=== PATIENT | female | born 1995 | race Caucasian/White ===

== ENCOUNTER 2023-05-28 15:16 | Outpatient (CLI) | payer BC, SELFPAY ==
--- NOTE | ~2023-05-28 | US_ITS ---
EXAMINATION: US transvaginal DATE: 05/28/2023 15:45 INDICATION: Abnormal uterine bleeding. Pelvic pain. Comparison:No prior studies for comparison. TECHNIQUE: Multiple transabdominal and endovaginal sonographic images of the pelvis performed. FINDINGS: The uterus measures 7.6 x 2.6 x 4 cm. The endometrial complex measures 3 mm. The right ovary measures 2.2 x 1.5 x 1.5 cm and the left ovary measures 3.2 x 1.2 x 2.1 cm. There ar e small follicles in each ovary. Normal doppler signal in both ovaries. There is no free fluid in the pelvis. There are no abnormal masses seen on either side. IMPRESSION: 1. Unremarkable pelvic ultrasound. Reviewed, dictated and finalized at location L.
== END 2023-05-28 15:17 ==
LOC: MICIMG 15:18
PROVIDERS: PCP Advanced Practice Midwife; Visit Provider Advanced Practice Midwife
DX: R10.2 Pelvic and perineal pain (principal); N93.8 Other specified abnormal uterine and vaginal bleeding
CPT/HCPCS: 76830

== ENCOUNTER 2024-12-22 16:16 | Outpatient (CLI) | payer BC, SELFPAY ==
[2024-12-22 16:54] LABS: Basophils Percent Auto 0.3 % (0.2-1.2); Eosinophils Absolute Auto 0.1 K/mm3 (0-0.3); Eosinophils Percent Auto 0.7 % (0-4.4); Hematocrit 40.2 % (37.0-47.0); Hemoglobin 12.6 g/dL (12.0-15.0); Immature Granulocyte Absolute 0.02 K/mm3 (0.00-0.031); Immature Granulocyte Percent A 0.2 % (0-0.5); Lymphocytes Absolute Auto 1.64 K/mm3 (0.9-3.2); Lymphocytes Percent Auto 18.3 % (18.3-44.2); Mean Corpuscular HGB Conc 31.3 g/dl (32-36); Mean Corpuscular Hemoglobin 28.1 pg (26-34); Mean Corpuscular Volume 89.7 fl (80-100); Mean Platelet Volume 10.3 fl (7.4-10.4); Monocytes Absolute Auto 0.8 K/mm3 (0.1-0.6); Monocytes Percent Auto 8.5 % (2.6-8.5); Neutrophils Absolute Auto 6.5 K/mm3 (1.3-6.7); Platelet Count Result 319 k/mm3 (150-375); Red Blood Count 4.48 M/mm3 (4.2-5.4); Red Cell Distribution Width 13.8 % (11.5-14.5)
--- OUTSIDE RECORDS SUMMARY | 2024-12-22 18:06 | XMS_ITS | Clinical Summary ---
Author Organization [facility] Address [address] [place] [id number] Care Team Providers Care Braille Proofreader Name Role Phone ApolinrachidiKeliLizett RUSSELL Primary Care Provider + Allergies Active Allergy Reactions Criticality Noted Date Comments Morphine Nausea & Vomiting Medium 08/21/2016 Medications medroxyPROGESTERon e 150 mg/mL injection 08/06/2019 Active Active Problems Problem Noted Date Diagnosed Date Nephrolithiasis 10/22/2019 Surgical History Surgery Date Site/Laterality Comments OTHER SURGICAL HISTORY jaw reconstruction Medical History Medical History Date Comments Kidney stone Anxiety Family History Medical History Relation Name Comments Kidney disease Mother Relation Name Status Comments Mother Social History Tobacco Use Types Packs/Day Years Used Date Smoking Tobacco: Never Smokeless Tobacco: Never Alcohol Use Standard Drinks/Week Comments Yes 0 (1 standard drink = 0.6 oz pur e alcohol) Personal Safety Answer Date Recorded Getting School Help Needed Not on file 11/16 Comments Unknown Sex and Gender Information Value Date Recorded Sex Assigned at Not on file Legal Sex Female 10:41 AM FINAL APPLICATION REVIEWER Gender Identity Not on file Sexual Orientation Not on file Occupation Industry Job Start Date Job End Date Hired Help Not on file Not on file Not on file Obstetrics History Last Filed Vital Signs Vital Sign Reading Time Taken Comments Blood Pressure 132/79 10/22/2019 4:03 PM FINAL APPLICATION REVIEWER Pulse 86 10/22/2019 4:03 PM FINAL APPLICATION REVIEWER Temperature 37.3 C (99.1 F) 10/22/2019 4:03 PM FINAL APPLICATION REVIEWER Respiratory Rate - - Oxygen Saturation - - Inhaled Oxygen Concentration - - Weight 81.6 kg (180 lb) 10/22/2019 4:03 PM FINAL APPLICATION REVIEWER Height 167.6 cm (5' 6 ) 10/22/2019 4:03 PM FINAL APPLICATION REVIEWER Body Mass Index 29.05 10/22/2019 4:03 PM FINAL APPLICATION REVIEWER Plan of Treatment Not on file Insurance [facility] Care Teams Braille Proofreader Relationship Specialty Start Date End Date Keli Luna DO [address] [place] [id number] PCP - General Family Medicine 10/19/19
--- OUTSIDE RECORDS SUMMARY | 2024-12-22 18:06 | XMS_ITS | Referral Summary ---
Author Organization [facility] Address [address] [place] [phone] Care Team Providers Care Tie Worker Name Role Phone CherylKeli Yvette RUSSELL Primary Care Provider + Allergies Active Allergy Reactions Criticality Noted Date Comments Morphine Nausea & Vomiting Medium 08/21/2016 Medications medroxyPROGESTERon e 150 mg/mL injection 08/06/2019 Active Active Problems Problem Noted Date Diagnosed Date Nephrolithiasis 10/22/2019 Social History Tobacco Use Types Packs/Day Years [...] on file Legal Sex Female 10:41 AM AUTISM SPECIALIST Gender Identity Not on file Sexual Orientation Not on file 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 file Not on file Not on file Last Filed Vital Signs Vital Sign Reading Time Taken Comments Blood Pressure 132/79 10/22/2019 4:03 PM AUTISM SPECIALIST Pulse 86 10/22/2019 4:03 PM AUTISM SPECIALIST Temperature 37.3 C (99.1 F) 10/22/2019 4:03 PM AUTISM SPECIALIST Respiratory Rate - - Oxygen Saturation - - Inhaled Oxygen Concentration - - Weight 81.6 kg (180 lb) 10/22/2019 4:03 PM AUTISM SPECIALIST Height 167.6 cm (5' 6 ) 10/22/2019 4:03 PM AUTISM SPECIALIST Body Mass Index 29.05 10/22/2019 4:03 PM AUTISM SPECIALIST Plan of Treatment Not on file Insurance [facility] Care Teams Tie Worker Relationship Specialty Start Date End Date Keli Luna DO [address] [place] [id number] PCP - General Family Medicine 10/19/19
--- OUTSIDE RECORDS SUMMARY | 2024-12-22 18:06 | XMS_ITS | Clinical Summary ---
Author Organization [facility] Address [address] [place] [address] Care Team Providers Care Tax Record Clerk Name Role Phone Carolee Thomas Primary Care Provider [phone] Allergies Active Allergy Reactions Criticality Noted Date Comments Bee Venom Unknown 04/22/2014 Morphine Nausea and Vomiting Medium 08/21/2016 Sulfacetamide Unknown 04/22/2014 Medications hydrocodone-acetam inophen 5-325 MG tabletIndications: Acute Pain < 7 Day Supply,kidney stone Take 1 tablet by mouth every 6 (six) hours as needed for Pain (severe pain). Indications: Acute Pain < 7 Day Supply, kidney stone Do not exceed 4g of acetaminophen in a day. 15 tablet 10/16/19 20 Active tamsulosin (FLOMAX) 0.4 MG Cap Take 1 capsule (0.4 mg total) by mouth daily. 10 capsule 10/16/19 20 Active ondansetron 4 MG disintegrating tablet Take 1 tablet (4 mg total) by mouth every 8 (eight) hours as needed for Nausea. 10 tablet 10/16/19 20 Active Social History Tobacco Use Types Packs/Day Years Used Date Smoking Tobacco: Never Smokeless Tobacco: Never Alcohol Use Standard Drinks/Week Comments Yes 0 (1 standard drink = 0.6 oz pur e alcohol) socially Comments No Sex and Gender Information Value Date Recorded Sex Assigned at Not on file Legal Sex Female 9:22 PM CDT Gender Identity Not on file Sexual Orientation Not on file Last Filed Vital Signs Vital Sign Reading Time Taken Comments Blood Pressure 136/89 07/14/2022 8:53 PM STOCKROOM ASSOCIATE Pulse 88 07/14/2022 8:53 PM STOCKROOM ASSOCIATE Temperature 36.9 C (98.5 F) 07/14/2022 8:53 PM STOCKROOM ASSOCIATE Respiratory Rate 18 07/14/2022 8:53 PM STOCKROOM ASSOCIATE Oxygen Saturation 100% 07/14/2022 8:53 PM STOCKROOM ASSOCIATE Inhaled Oxygen Concentration - - Weight 59 kg (130 lb) 07/14/2022 8:53 PM STOCKROOM ASSOCIATE Height 167.6 cm (5' 6 ) 07/14/2022 8:53 PM STOCKROOM ASSOCIATE Body Mass Index 20.98 07/14/2022 8:53 PM STOCKROOM ASSOCIATE Plan of Treatment Health Maintenance Due Date Last Done Comments Cervical Cancer Screening Pa p Smear (Age 21 to 29) Every 3 Years 1996 Cervical Cancer Screening 1996 Annual Physical 1999 Hepatitis C 2014 DTaP, Tdap and Td Vaccines ( 1 - Tdap) 2015 Hepatitis B Vaccines (1 of 3 - 19+ 3-dose series) 2015 COVID-19 Vaccine (3 - 2023-2 5 season) 2024 12/19/2020, 11/28/2020 HPV Vaccines Aged Out No longer eligi ble based on patient's age to complete this topic Meningococcal B Vaccine Aged Out No l onger eligible based on patient's age to complete this topic Meningococcal Vaccine Aged Out No ellen clotilde eligible based on patient's age to complete this topic Pneumococcal Vaccine: Pediatrics (0 to 5 Years) and At-Risk Patients (6 to 49 Years) Aged Out No longer eligible b ased on patient's age to complete this topic RSV Immunizations Under 20 Months Aged Out No longer eligible b ased on patient's age to complete this topic Insurance [facility] Care Teams Tax Record Clerk Relationship Specialty Start Date End Date Carolee Thomas PA [address] [place] [id number] PCP - General PHYSICIAN MANAGER CUSTOM 07/14/22
== END 2024-12-22 16:17 | disposition home or self-care (01) ==
LOC: ANHLAB 16:19
PROVIDERS: PCP Advanced Practice Midwife; Visit Provider Obstetrics & Gynecology
DX: O20.0 Threatened abortion (principal); Z3A.00 Weeks of gestation of pregnancy not specified
CPT/HCPCS: 36415; 84702; 85025; 86900; 86901

== ENCOUNTER 2024-12-24 15:13 | Outpatient (CLI) | payer BC, SELFPAY ==
--- OUTSIDE RECORDS SUMMARY | 2024-12-24 16:28 | XMS_ITS | Clinical Summary ---
Author Organization [facility] Address [address] [place] [address] Care Team Providers Care Leaf Stripper Name Role Phone Carolee Thomas Primary Care Provider [phone] Allergies Active Allergy Reactions Criticality Noted Date [...] Comments Blood Pressure 136/89 07/14/2022 8:53 PM PLATE ROLLER Pulse 88 07/14/2022 8:53 PM PLATE ROLLER Temperature 36.9 C (98.5 F) 07/14/2022 8:53 PM PLATE ROLLER Respiratory Rate 18 07/14/2022 8:53 PM PLATE ROLLER Oxygen Saturation 100% 07/14/2022 8:53 PM PLATE ROLLER Inhaled Oxygen Concentration - - Weight 59 kg (130 lb) 07/14/2022 8:53 PM PLATE ROLLER Height 167.6 cm (5' 6 ) 07/14/2022 8:53 PM PLATE ROLLER Body Mass Index 20.98 07/14/2022 8:53 PM PLATE ROLLER Plan of Treatment Health Maintenance Due Date [...] patient's age to complete this topic Insurance [facility] Care Teams Leaf Stripper Relationship Specialty Start Date End Date Carolee Thomas PA [address] [place] [id number] PCP - General PHYSICIAN DECKHAND CLAM DREDGE 07/14/22
--- OUTSIDE RECORDS SUMMARY | 2024-12-24 16:28 | XMS_ITS | Referral Summary ---
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 Not on file Not on file Last Filed Vital Signs Vital Sign Reading Time Taken Comments Blood Pressure 132/79 10/22/2019 4:[address] JUDGE Pulse 86 10/22/2019 4:[address] JUDGE Temperature 37.3 C (99.1 F) 10/22/2019 4:[address] JUDGE Respiratory Rate - - Oxygen Saturation - - Inhaled Oxygen Concentration - - Weight 81.6 kg (180 lb) 10/22/2019 4:[address] JUDGE Height 167.6 cm (5' 6 ) 10/22/2019 4:[address] JUDGE Body Mass Index 29.05 10/22/2019 4:[address] JUDGE Plan of Treatment Not on file Insurance [facility] Care Teams Money Manager Relationship Specialty Start Date End Date Keli Luna DO [address] [place] [id number] PCP - General Family Medicine 10/19/19
--- OUTSIDE RECORDS SUMMARY | 2024-12-24 16:28 | XMS_ITS | Clinical Summary ---
Author Organization [facility] Address [address] [place] [phone] Care Team Providers Care Materials Planner Name Role Phone ApolinarchidiKeliLizett RUSSELL Primary Care Provider + Allergies Active [...] on file Legal Sex Female 10:41 AM TRIGONOMETRY TEACHER Gender Identity Not on file Sexual Orientation Not on file Occupation Industry Job Start Date Job End Date [employer] Not on file Not on file Not on file Obstetrics History Last Filed Vital Signs Vital Sign Reading Time Taken Comments Blood Pressure 132/79 10/22/2019 4:03 PM TRIGONOMETRY TEACHER Pulse 86 10/22/2019 4:03 PM TRIGONOMETRY TEACHER Temperature 37.3 C (99.1 F) 10/22/2019 4:03 PM TRIGONOMETRY TEACHER Respiratory Rate - - Oxygen Saturation - - Inhaled Oxygen Concentration - - Weight 81.6 kg (180 lb) 10/22/2019 4:03 PM TRIGONOMETRY TEACHER Height 167.6 cm (5' 6 ) 10/22/2019 4:03 PM TRIGONOMETRY TEACHER Body Mass Index 29.05 10/22/2019 4:03 PM TRIGONOMETRY TEACHER Plan of Treatment Not on file Insurance [facility] Care Teams Materials Planner Relationship Specialty Start Date End Date Keli Luna DO [address] [place] [phone] PCP - General Family Medicine 10/19/19
== END 2024-12-24 15:14 | disposition home or self-care (01) ==
LOC: ANHLAB 15:14
PROVIDERS: PCP Advanced Practice Midwife; Visit Provider Obstetrics & Gynecology
DX: O36.80X0 Pregnancy with inconclusive fetal viability, not applicable or unspecified (principal); Z3A.00 Weeks of gestation of pregnancy not specified
CPT/HCPCS: 36415; 84702